=== PATIENT | female | born 1980 | race Caucasian/White ===

== ENCOUNTER 2017-04-18 19:37 | Emergency (ER) | payer SELFPAY ==
[2017-04-18 20:13] LABS: URINE HCG POC HCG NEGATIVE (Negative)
[2017-04-18 21:57] LABS: ADD MAN DIFF? NO
[2017-04-18 21:59] LABS: BASO # 0.1 x10^3/uL (0.0-0.2); BASO % 1 % (0-3); EOS # 0.2 x10^3/uL (0.0-0.7); EOS % 3 % (0-3); HEMOGLOBIN 13.2 g/dL (12.0-15.5); LYMPH # 1.6 x10^3/uL (1.0-4.8); LYMPH % 23 % (24-48); MEAN CORPUSCULAR HEMOGLOBIN 30 pg (25-35); MEAN CORPUSCULAR HGB CONC 34 g/dL (31-37); MEAN CORPUSCULAR VOLUME 90 fL (79-100); MONO # 0.3 x10^3/uL (0.0-1.1); MONO % 5 % (0-9); NEUT # 4.6 x10^3uL (1.8-7.7); NEUT % 67 % (31-73); PLATELET COUNT 239 x10^3/uL (140-400); RED BLOOD COUNT 4.35 x10^6/uL (3.50-5.40); RED CELL DISTRIBUTION WIDTH 14.2 % (11.5-14.5); WHITE BLOOD COUNT 6.8 x10^3/uL (4.0-11.0)
[2017-04-18 22:00] LABS: BILIRUBIN,URINE SMALL (NEG); CLARITY,URINE CLOUDY; COLOR,URINE RED; GLUCOSE,URINE 250 mg/dL (NEG); NITRITE,URINE NEGATIVE (NEG); PROTEIN,URINE 30 mg/dL (NEG-TRACE)
[2017-04-18 22:08] LABS: ANION GAP 6 (6-14); BLOOD UREA NITROGEN 10 mg/dL (7-20); BUN/CREATININE RATIO 14 (6-20); CALCIUM 8.4 mg/dL (8.5-10.1); CARBON DIOXIDE 29 mmol/L (21-32); CHLORIDE 103 mmol/L (98-107); CREATININE 0.7 mg/dL (0.6-1.0); GFR 93.6; GLUCOSE 177 mg/dL (70-99); POTASSIUM 3.6 mmol/L (3.5-5.1); SODIUM 138 mmol/L (136-145)
[2017-04-18 22:10] LABS: BACTERIA,URINE MOD /HPF (0-FEW); RBC,URINE TNTC /HPF (0-2); SQUAMOUS EPITHELIAL CELL,UR MANY /LPF
[2017-04-18] MEDS: KETOROLAC 30 MG/ML INJ. IV (22:10)
[2017-04-18] MEDS: IV NORMAL SALINE 1000ML BAG 1,000 ML IV (22:11)
[2017-04-18 22:13] LABS: ALBUMIN 3.1 g/dL (3.4-5.0); ALK PHOS 86 U/L (46-116); ALT (SGPT) 37 U/L (14-59); AST (SGOT) 32 U/L (15-37); LIPASE 227 U/L (73-393); TOTAL BILIRUBIN 0.3 mg/dL (0.2-1.0); TOTAL PROTEIN 6.1 g/dL (6.4-8.2)
== END 2017-04-19 00:01 | disposition home or self-care (01) ==
LOC: ER 04-19 00:01
DX: R10.9 Unspecified abdominal pain (principal); R31.9 Hematuria, unspecified; F31.9 Bipolar disorder, unspecified; E11.9 Type 2 diabetes mellitus without complications; Z90.49 Acquired absence of other specified parts of digestive tract; Z87.442 Personal history of urinary calculi; Z87.440 Personal history of urinary (tract) infections; Z88.5 Allergy status to narcotic agent; Z88.8 Allergy status to other drugs, medicaments and biological substances
CPT/HCPCS: 36415; 74176; 80053; 81001; 81025; 83690; 85025; 96361; 96374; 99285-25; J1885; J7030

== ENCOUNTER 2017-04-28 15:54 | Emergency (ER) | payer SELFPAY ==
[2017-04-28 16:17] LABS: URINE HCG POC HCG NEGATIVE (Negative)
[2017-04-28 16:17] LABS: BILIRUBIN,URINE NEGATIVE (NEG); COLOR,URINE YELLOW; GLUCOSE,URINE 500 mg/dL (NEG); NITRITE,URINE NEGATIVE (NEG); PH,URINE 7.5; PROTEIN,URINE NEGATIVE (NEG-TRACE)
[2017-04-28 16:30] LABS: BACTERIA,URINE FEW /HPF (0-FEW); CLARITY,URINE HAZY; RBC,URINE 0 /HPF (0-2); SQUAMOUS EPITHELIAL CELL,UR MOD /LPF; WBC,URINE OCC /HPF (0-4)
[2017-04-28 16:31] LABS: AMORPHOUS SEDIMENT,UR PRESENT /HPF
[2017-04-28] MEDS: ACETAMINOPHEN 325 MG TABLET. PO (16:56)
== END 2017-04-28 16:57 | disposition home or self-care (01) ==
LOC: ER 15:54
DX: R30.0 Dysuria (principal); R10.30 Lower abdominal pain, unspecified; E11.9 Type 2 diabetes mellitus without complications; F31.9 Bipolar disorder, unspecified; Z87.440 Personal history of urinary (tract) infections; Z90.49 Acquired absence of other specified parts of digestive tract; Z88.8 Allergy status to other drugs, medicaments and biological substances; Z88.5 Allergy status to narcotic agent
CPT/HCPCS: 81001; 81025; 87086; 99284

== ENCOUNTER 2017-06-06 15:44 | Emergency (ER) | payer SELFPAY ==
[2017-06-06] MEDS: HYDROcodone/APAP 5/325MG 1 TAB TABLET PO (16:23)
== END 2017-06-06 16:25 | disposition home or self-care (01) ==
LOC: ER 15:44
DX: K08.89 Other specified disorders of teeth and supporting structures (principal); F31.9 Bipolar disorder, unspecified; E11.9 Type 2 diabetes mellitus without complications; Z76.5 Malingerer [conscious simulation]; Z86.711 Personal history of pulmonary embolism; Z90.49 Acquired absence of other specified parts of digestive tract; Z87.442 Personal history of urinary calculi; Z88.8 Allergy status to other drugs, medicaments and biological substances
CPT/HCPCS: 99283

== ENCOUNTER 2017-06-10 22:18 | Emergency (ER) | payer SELFPAY ==
[2017-06-10 22:52] LABS: URINE HCG POC HCG NEGATIVE (Negative)
[2017-06-10 23:02] LABS: BILIRUBIN,URINE NEGATIVE (NEG); CLARITY,URINE CLEAR; COLOR,URINE YELLOW; GLUCOSE,URINE 500 mg/dL (NEG); NITRITE,URINE NEGATIVE (NEG); PH,URINE 5.5; PROTEIN,URINE NEGATIVE (NEG-TRACE); UROBILINOGEN,URINE 0.2 mg/dL (0.2 mg/dL)
[2017-06-10 23:14] LABS: ADD MAN DIFF? NO; BACTERIA,URINE FEW /HPF (0-FEW); RBC,URINE 0 /HPF (0-2); SQUAMOUS EPITHELIAL CELL,UR MOD /LPF; WBC,URINE OCC /HPF (0-4)
[2017-06-10 23:16] LABS: BASO # 0.1 x10^3/uL (0.0-0.2); BASO % 1 % (0-3); EOS # 0.3 x10^3/uL (0.0-0.7); EOS % 4 % (0-3); HEMATOCRIT 39.4 % (36.0-47.0); HEMOGLOBIN 13.6 g/dL (12.0-15.5); LYMPH # 2.4 x10^3/uL (1.0-4.8); LYMPH % 29 % (24-48); MEAN CORPUSCULAR HEMOGLOBIN 30 pg (25-35); MEAN CORPUSCULAR HGB CONC 35 g/dL (31-37); MEAN CORPUSCULAR VOLUME 88 fL (79-100); MONO # 0.6 x10^3/uL (0.0-1.1); MONO % 7 % (0-9); NEUT % 60 % (31-73); PLATELET COUNT 271 x10^3/uL (140-400); RED BLOOD COUNT 4.49 x10^6/uL (3.50-5.40); RED CELL DISTRIBUTION WIDTH 13.6 % (11.5-14.5); WHITE BLOOD COUNT 8.4 x10^3/uL (4.0-11.0)
[2017-06-10] MEDS: IV NORMAL SALINE 1000ML BAG 1,000 ML IV (23:22)
[2017-06-10] MEDS: KETOROLAC 30 MG/ML INJ. IV (23:22)
[2017-06-10] MEDS: ONDANSETRON PF 4 MG/2 ML VIAL. IV (23:22)
[2017-06-10] MEDS: fentaNYL PF VIAL 100 MCG/2 ML VIAL IV (23:23)
[2017-06-10 23:30] LABS: ALBUMIN 3.4 g/dL (3.4-5.0); ALBUMIN/GLOBULIN RATIO 1.1 (1.0-1.7); ALK PHOS 79 U/L (46-116); ALT (SGPT) 30 U/L (14-59); ANION GAP 12 (6-14); AST (SGOT) 19 U/L (15-37); BLOOD UREA NITROGEN 12 mg/dL (7-20); BUN/CREATININE RATIO 17 (6-20); CALCIUM 8.1 mg/dL (8.5-10.1); CARBON DIOXIDE 24 mmol/L (21-32); CHLORIDE 105 mmol/L (98-107); CREATININE 0.7 mg/dL (0.6-1.0); GFR 93.6; GLUCOSE 161 mg/dL (70-99); LIPASE 237 U/L (73-393); SODIUM 141 mmol/L (136-145); TOTAL BILIRUBIN 0.4 mg/dL (0.2-1.0); TOTAL PROTEIN 6.4 g/dL (6.4-8.2)
[2017-06-10 23:31] LABS: POTASSIUM 2.9 mmol/L (3.5-5.1)
[2017-06-11] MEDS: POTASSIUM CHLORIDE 20 MEQ TABLET.ER. PO
== END 2017-06-11 00:23 | disposition home or self-care (01) ==
LOC: ER 22:18
DX: E87.6 Hypokalemia (principal); E86.0 Dehydration; R10.9 Unspecified abdominal pain; F31.9 Bipolar disorder, unspecified; E11.9 Type 2 diabetes mellitus without complications; Z88.8 Allergy status to other drugs, medicaments and biological substances; Z87.442 Personal history of urinary calculi; Z90.49 Acquired absence of other specified parts of digestive tract
CPT/HCPCS: 36415; 80053; 81001; 81025; 83690; 85025; 96361; 96374; 96375; 99284; J1885; J2405; J3010; J7030